=== PATIENT | female | born 2000 | race Caucasian/White ===

== ENCOUNTER 2023-11-23 03:22 | Emergency (ER) | payer BC ==
[~2023-11-23] VITALS: Ht 160 cm; Wt 52.3 kg
[2023-11-23 03:28] VITALS: TEMP 97
[2023-11-23] MEDS ORDERED: Ondansetron 4 MG/2 ML VIAL IV SCH (03:30)
[2023-11-23] MEDS ORDERED: Naloxone 0.4 MG/ML VIAL IV ONE (03:35)
[2023-11-23 03:50] LABS: BASO # 0.1 K/mm3 (0.0-0.2); BASO % 0.9 % (0.0-2.0); EOS # 0.1 K/mm3 (0.0-0.7); EOS % 1.3 % (0.0-4.0); GRAN # 5.4 K/mm3 (1.4-6.5); GRAN % 66.3 % (42.2-75.2); HEMATOCRIT 42.8 % (37.0-47.0); HEMOGLOBIN 14.2 g/dl (12.5-16.0); LYMPH # 2.3 K/mm3 (1.2-3.4); LYMPH % 27.9 % (20.0-51.0); MEAN CELL VOLUME 93 fl (80.0-100.0); MEAN CORPUSCULAR HEMOGLOBIN 31 pg (27-31); MEAN CORPUSCULAR HGB CONC 33 g/dl (33.0-37.0); MEAN PLATELET VOLUME 9.2 fl (7.4-10.4); MONO # 0.3 K/mm3 (0.1-0.6); MONO % 3.4 % (1.7-9.3); PLATELET COUNT 295 K/mm3 (130-400); RED BLOOD COUNT 4.59 M/mm3 (4.10-5.30); REDCELL DISTRIBUTION WIDTH-CV 12.4 % (11.5-14.5)
[2023-11-23 04:18] LABS: ALANINE AMINOTRANSFERASE 13 U/L (0-55); ALBUMIN 4.2 g/dL (3.5-5.0); ALKALINE PHOSPHATASE 42 U/L (40-150); ANION GAP 13 mmol/L (7-16); AST,SGOT 19 U/L (5-34); BILIRUBIN,TOTAL 0.4 mg/dL (0.2-1.2); BLOOD UREA NITROGEN 8 mg/dL (7-19); CALCIUM 9.3 mg/dL (8.4-10.2); CHLORIDE 104 mEq/L (98-107); CREATININE, serum 0.88 mg/dL (0.57-1.11); GLUCOSE 74 mg/dL (70-99); POTASSIUM 3.6 mEq/L (3.5-4.5); SODIUM 141 mEq/L (136-145); TOTAL PROTEIN 7.2 g/dl (6.2-8.1)
[2023-11-23 05:28] LABS: SALICYLATE < 5.0 mg/dL (15.0-30.0)
[2023-11-23 06:36] LABS: ALCOHOL(ethanol),MEDICAL 295 mg/dL (0-10)
[2023-11-23 08:51] VITALS: BP 110/82; PULSE 83
== END 2023-11-23 08:40 | disposition home or self-care (01) ==
LOC: COL.ER 03:22
PROVIDERS: Emergency Medicine
DX: F10.129 Alcohol abuse with intoxication, unspecified (principal); Y90.8 Blood alcohol level of 240 mg/100 ml or more
CPT/HCPCS: J2310; J2405